=== PATIENT | female | born 1970 | race Caucasian/White ===

== ENCOUNTER 2024-07-24 08:48 | Day surgery (SDC) | payer OTHER ==
[~2024-07-24] VITALS: Ht 152.4 cm; Wt 70.3 kg
[2024-07-24] MEDS ORDERED: LIDOCAINE MPF 2% 20 MG/1 ML, 5 ML VIAL INH ONE (10:00)
[2024-07-24] MEDS ORDERED: NORMAL SALINE 10 ML VIAL ONE (10:00)
[2024-07-24] MEDS ORDERED: methylPREDNISolone ACETATE 40 MG/ML ONE (10:00)
[2024-07-24] MEDS ORDERED: IOHEXOL 300 mgI/mL, 50 mL INFUS..BTL IV ONE (10:00)
[2024-07-24] MEDS ORDERED: fentaNYL CITRATE/PF 100 MCG/2 ML AMP ONE (10:17)
[2024-07-24] MEDS: MIDAZOLAM HCL 5 MG/5 ML VIAL IVP ONE (11:01)
[2024-07-24] MEDS: MIDAZOLAM HCL 5 MG/5 ML VIAL ONE (11:01)
[2024-07-24 14:42] VITALS: BP_SYST 157; PULSE 80; RESP 20; TEMP 97.4; O2SAT 97
== END 2024-07-24 11:45 | disposition home or self-care (01) ==
LOC: SDS 08:48 → SMU 08:53 → SDS 11:45
PROVIDERS: ATTEND Internal Medicine
DX: M51.16 Intervertebral disc disorders with radiculopathy, lumbar region (principal); I10 Essential (primary) hypertension; Z88.0 Allergy status to penicillin; Z79.899 Other long term (current) drug therapy
CPT/HCPCS: 62323; J2250; Q9967; J1010; 76000; J1030; J3010